=== PATIENT | female | born 1970 | race Caucasian/White ===

== ENCOUNTER 2020-10-27 18:01 | Emergency (ER) | payer MEDICAID, OTHER ==
[~2020-10-27] VITALS: Ht 157.5 cm; Wt 63.6 kg
[~2020-10-27 18:01] MED LIST: RABE20TA18 PO
--- NOTE | 2020-10-27 20:51 | NUR ---
pt ambulated to room 7, and med student to eval pt.
[2020-10-27] MEDS ORDERED: NAPROXEN 500 MG TABLET ONE (21:53)
[2020-10-27] MEDS ORDERED: NAPROXEN 500 MG TABLET PO ONE (22:00)
[2020-10-27] MEDS ORDERED: KETOROLAC 30 MG/1 ML ONE (22:03)
--- NOTE | 2020-10-27 22:08 | NUR ---
PT REFUSED NAPROXEN, STATES, "IT TEARS UP MY STOMACH". ERP NOTIFIED, MEDICATED WITH TORADOL PER ORDERS. ERP WAS IN TO SEE PT. R ARM SLING APPLIED BY [employer] C[employer] MANAGER, [facility] INTACT.
[2020-10-27 22:13] VITALS: BP 128/74
--- NOTE | 2020-10-27 22:24 | NUR ---
D/C INSTRUCTIONS, MEDS & F/U APPT RV'WD WITH PT, SHE VERBALIZES UNDERSTANDING. RX GIVEN X2. PT AMBULATED OUT OF ED WITH PARTNER WITHOUT DIFFICULTY.
[2020-10-27] MEDS ORDERED: KETOROLAC 30 MG/1 ML IM ONE (22:30)
== END 2020-10-27 22:26 | disposition home or self-care (01) ==
LOC: ED 22:01
DX: M77.9 Enthesopathy, unspecified (principal); J45.909 Unspecified asthma, uncomplicated; Z90.89 Acquired absence of other organs; Z90.49 Acquired absence of other specified parts of digestive tract; Z90.710 Acquired absence of both cervix and uterus
CPT/HCPCS: 73080; 93971; 96372; 99284; J1885